=== PATIENT | male | born 1940 | race Caucasian/White ===

== ENCOUNTER 2020-01-30 06:04 | Day surgery (SDC) | payer MEDICARE ==
[~2020-01-30] VITALS: Ht 177.8 cm; Wt 86.0 kg
[~2020-01-30 06:04] MED LIST: ALLO300T PO; DILT120C11 PO; LEVO25TA4 PO; LOSA100T14 PO; MAGN30TA2 PO; METF10007 PO; OMEP-110 PO; POTA8CAP20 PO
[2020-01-30 06:48] VITALS: BP 150/73
[2020-01-30 07:26] LABS: MEAN CORPUSCULAR HEMOGLOBIN 31.8 pg (27.5-34.5); MEAN CORPUSCULAR HGB CONC 33.7 g/dL (33.2-36.2); MEAN PLATELET VOLUME 8.3 fL (7.4-10.4); PLATELET COUNT 238 x10^3/uL (130-400); RED BLOOD COUNT 2.92 x10^6/uL (4.38-5.82); RED CELL DISTRIBUTION WIDTH 20.6 % (9.4-14.8)
[2020-01-30] MEDS ORDERED: SODIUM CHLORIDE 0.9% 1,000 ML IV SCH (07:30)
[2020-01-30 08:07] LABS: MD YES
[2020-01-30 08:09] LABS: BASOS#(MANUAL) 0.07 x10^3/uL (0-0.1); BASOS% (MANUAL) 2 % (0-1)
[2020-01-30 08:10] LABS: <PLATELET ESTIMATE> ADEQUATE; <PLT MORPHOLOGY> NORMAL PLT MORPH; ANISOCYTOSIS 1+; EOS#(MANUAL) 0.32 x10^3/uL (0.0-0.4); EOS% (MANUAL) 9 % (1-7); LYMPH#(MANUAL) 1.12 x10^3/uL (1-3.4); LYMPHS% (MANUAL) 31 % (22-44); MONOS#(MANUAL) 0.25 x10^3/uL (0.3-2.7); MONOS% (MANUAL) 7 % (2-9); SEG#(MANUAL) 1.84 x10^3/uL (1.8-6.8); SEGS% (MANUAL) 51 % (42-75)
[2020-01-30] MEDS ORDERED: MIDAZOLAM 1 MG/ML, 5ML ONE (08:15)
[2020-01-30] MEDS ORDERED: NALOXONE 1 MG/ML, 2ML ONE (08:15)
[2020-01-30] MEDS ORDERED: FENTANYL PF 100 MCG/2ML ONE (08:15)
[2020-01-30] MEDS ORDERED: FLUMAZENIL 0.1 MG/1 ML, 5ML ONE (08:15)
== END 2020-01-30 10:10 | disposition home or self-care (01) ==
LOC: OUT 06:04
PROVIDERS: ATTEND Internal Medicine
DX: D64.9 Anemia, unspecified (principal); I10 Essential (primary) hypertension; E11.9 Type 2 diabetes mellitus without complications; Z79.84 Long term (current) use of oral hypoglycemic drugs; Z79.890 Hormone replacement therapy; Z79.899 Other long term (current) drug therapy; Z87.891 Personal history of nicotine dependence
CPT/HCPCS: 36415; 38222; 77012; 85025; 85060; 85097; 88237; 88264; 88280; 88305; 88311; 88313; 99156; J2250; J3010; J7030; J2310

== ENCOUNTER 2020-05-15 08:15 | Inpatient (IN) | payer MEDICARE ==
[~2020-05-15] VITALS: Ht 172.7 cm; Wt 87.9 kg
[2020-05-15] MEDS ORDERED: SODIUM CHLORIDE FLUSH 10ML SYR IVF ONE (08:30)
--- NOTE | 2020-05-15 09:04 | NUR ---
PT UPRIGHT ON AWAKE & CALM, NAD, NO NEEDS AT THIS TIME, AT BS, CALL LIGHT WITHIN REACH.
[2020-05-15 10:02] LABS: BASOPHILS % (AUTO) 6 % (0-1); EOSINOPHILS % (AUTO) 5 % (1-7); LYMPHOCYTES % (AUTO) 15 % (22-44); MEAN CORPUSCULAR HEMOGLOBIN 30.8 pg (27.5-34.5); MEAN CORPUSCULAR HGB CONC 33.3 g/dL (33.2-36.2); MEAN PLATELET VOLUME 8.8 fL (7.4-10.4); MONOCYTES % (AUTO) 9 % (2-9); NEUTROPHILS % (AUTO) 65 % (42-75); PLATELET COUNT 351 x10^3/uL (130-400); RED BLOOD COUNT 2.59 x10^6/uL (4.38-5.82); RED CELL DISTRIBUTION WIDTH 25.3 % (9.4-14.8)
[2020-05-15 10:03] LABS: ALBUMIN 3.2 g/dL (3.4-5.0); ANION GAP 9 mmol/L (5-15); CALCIUM 8.8 mg/dL (8.5-10.1); CHLORIDE 102 mmol/L (98-107)
--- NOTE | 2020-05-15 10:06 | NUR ---
NAD, NO NEEDS AT THIS TIME, AT BS, CALL LIGHT WITHIN REACH.
[2020-05-15 10:09] LABS: ALANINE AMINOTRANSFERASE 31 U/L (12-78); ALKALINE PHOSPHATASE 55 U/L (45-117); BILIRUBIN,TOTAL 0.6 mg/dL (0.2-1.0); CREATININE 1.14 mg/dL (0.7-1.3); TOTAL PROTEIN 7.2 g/dL (6.4-8.2)
[2020-05-15 10:16] LABS: TROPONIN I 0.124 ng/mL (0.000-0.045)
--- NOTE | 2020-05-15 10:20 | NUR ---
THROUGHPUT RN: NOTIFIED PRIMARY RN OF TROP LEVEL.
[2020-05-15 10:36] LABS: MD SCAN
[2020-05-15] MEDS ORDERED: FUROSEMIDE 40 MG/4 ML ONE (10:54)
[2020-05-15] MEDS ORDERED: ASPIRIN 81 MG TABLET CHEW ONE (10:55)
[2020-05-15] MEDS ORDERED: FUROSEMIDE 40 MG/4 ML IV ONE (11:00)
[2020-05-15] MEDS ORDERED: ASPIRIN 81 MG TABLET CHEW PO ONE (11:00)
--- NOTE | 2020-05-15 11:26 | NUR ---
Pt to be admitted to [facility], room 508-2. Report called to
[2020-05-15] MEDS ORDERED: ONDANSETRON ODT 4 MG PO PRN (11:30)
[2020-05-15] MEDS ORDERED: POLYETHYLENE GLYCOL 17 GM PACKET PO PRN (11:30)
[2020-05-15] MEDS ORDERED: hydrALAzine 20 MG/ML, 1ML IVPush PRN (11:30)
[2020-05-15] MEDS ORDERED: ONDANSETRON 2MG/ML, 2ML IVPush PRN (11:30)
[2020-05-15] MEDS ORDERED: GUAIFENESIN/DM 200-20MG, 10ML UDC PO PRN (11:30)
[2020-05-15] MEDS ORDERED: ACETAMINOPHEN 325 MG TABLET PO PRN (11:30)
[2020-05-15] MEDS ORDERED: MELATONIN 5 MG TABLET PO PRN (11:30)
[2020-05-15 12:20] VITALS: BP 119/75
[2020-05-15 12:54] LABS: TROPONIN I 0.135 ng/mL (0.000-0.045)
[2020-05-15] MEDS: FUROSEMIDE 40 MG/4 ML IV SCH (14:00)
[2020-05-15] MEDS: INSULIN LISPRO 100 UNITS/ML, PEN SQ-INSULIN SCH ×2 (16:32→21:42)
[2020-05-15] MEDS ORDERED: FUROSEMIDE 20 MG/2 ML IV SCH (17:00)
[2020-05-15 17:28] LABS: TROPONIN I 0.126 ng/mL (0.000-0.045)
[2020-05-15 18:34] LABS: MICROSCOPIC AUTO
[2020-05-15 18:59] VITALS: BP 133/72
[2020-05-15 23:59] LABS: TROPONIN I 0.129 ng/mL (0.000-0.045)
[2020-05-16 00:55] VITALS: BP 101/64
[2020-05-16 05:01] LABS: MEAN CORPUSCULAR HEMOGLOBIN 30.4 pg (27.5-34.5); MEAN PLATELET VOLUME 8.5 fL (7.4-10.4); PLATELET COUNT 343 x10^3/uL (130-400); RED BLOOD COUNT 2.68 x10^6/uL (4.38-5.82); RED CELL DISTRIBUTION WIDTH 24.9 % (9.4-14.8)
[2020-05-16 05:16] LABS: CHLORIDE 106 mmol/L (98-107)
[2020-05-16 05:25] LABS: ANION GAP 7 mmol/L (5-15); CALCIUM 9.1 mg/dL (8.5-10.1); CHOLESTEROL, TOTAL 121 mg/dL (140-239); CREATININE 1.14 mg/dL (0.7-1.3); HDL CHOL % 25 % (26-37); HDL CHOLESTEROL (DIRECT) 30 mg/dL (40-60); LDL CHOLESTEROL,CALCULATED 66 mg/dL (54-169); LDL/HDL RATIO 2.2 (0.5-3.0); TRIGLYCERIDES 123 mg/dL (50-200); TROPONIN I 0.132 ng/mL (0.000-0.045); VLDL CHOLESTEROL 25 mg/dL (0-25)
[2020-05-16 05:57] LABS: MD YES
[2020-05-16 06:00] LABS: BAND#(MANUAL) 0.06 x10^3/uL; BANDS%(MANUAL) 1 % (0-7); BASOS#(MANUAL) 0.17 x10^3/uL (0-0.1); BASOS% (MANUAL) 3 % (0-1); EOS#(MANUAL) 0.73 x10^3/uL (0.0-0.4); EOS% (MANUAL) 13 % (1-7); LYMPH#(MANUAL) 1.34 x10^3/uL (1-3.4); LYMPHS% (MANUAL) 24 % (22-44); METAMYELOCYTES# (MANUAL) 0.06 x10^3/uL (0-0); METAMYELOCYTES% (MANUAL) 1 % (0-1); MONOS#(MANUAL) 0.39 x10^3/uL (0.3-2.7); MONOS% (MANUAL) 7 % (2-9); SEG#(MANUAL) 2.86 x10^3/uL (1.8-6.8); SEGS% (MANUAL) 51 % (42-75)
[2020-05-16 06:06] LABS: ANISOCYTOSIS 1+; MICROCYTOSIS 1+; PMNS WITH VACUOLES 1+
[2020-05-16 06:07] LABS: OVALOCYTES 1+; POLYCHROMASIA 1+
[2020-05-16 06:09] LABS: <PLATELET ESTIMATE> ADEQUATE; <PLT MORPHOLOGY> NORMAL PLT MORPH; ACANTHOCYTES 1+; TEAR DROPS 1+
[2020-05-16] MEDS: METOPROLOL SUCCINATE 50 MG TAB.ER.24H PO SCH ×2 (06:17→08:12)
[2020-05-16 06:51] VITALS: BP 117/71
[2020-05-16] MEDS: INSULIN LISPRO 100 UNITS/ML, PEN SQ-INSULIN SCH ×5 (07:00→20:24)
[2020-05-16 08:09] VITALS: BP 137/74
[2020-05-16] MEDS: ALLOPURINOL 300 MG TABLET PO SCH (08:11)
[2020-05-16] MEDS: LEVOTHYROXINE 25 MCG TABLET PO SCH (08:11)
[2020-05-16] MEDS: LOSARTAN 100 MG TAB PO SCH (08:12)
[2020-05-16] MEDS: OMEPRAZOLE 20 MG CAPSULE.DR PO SCH (08:12)
[2020-05-16] MEDS: FUROSEMIDE 40 MG/4 ML IV SCH ×2 (08:13→08:27)
[2020-05-16] MEDS ORDERED: DILTIAZEM 120 MG CAP.ER.12H PO SCH (09:00)
[2020-05-16] MEDS ORDERED: SODIUM CHLORIDE 0.9% 1,000 ML IV SCH (10:00)
[2020-05-16] MEDS ORDERED: MIDAZOLAM 1 MG/ML, 5ML ONE (10:58)
[2020-05-16] MEDS ORDERED: HEPARIN 1,000 UNITS/ML, 10ML ONE (10:59)
[2020-05-16] MEDS ORDERED: LIDOCAINE-MPF 1%, 5ML ONE (10:59)
[2020-05-16] MEDS ORDERED: TICAGRELOR 90 MG TABLET ONE (10:59)
[2020-05-16] MEDS ORDERED: VERAPAMIL 2.5 MG/ML, 2ML ONE (10:59)
[2020-05-16] MEDS ORDERED: BIVALIRUDIN 250 MG ONE ×2 (10:59→12:08)
[2020-05-16] MEDS ORDERED: FENTANYL PF 100 MCG/2ML ONE (10:59)
[2020-05-16] MEDS ORDERED: NITROGLYCERIN 5 MG/ML, 10ML ONE (11:05)
[2020-05-16] MEDS: SODIUM CHLORIDE 0.9% 1,000 ML IV SCH ×2 (12:30→22:32)
[2020-05-16] MEDS ORDERED: BIVALIRUDIN 250 MG in SODIUM CHLORIDE 0.9% 50 ML IV SCH (13:00)
[2020-05-16 13:43] VITALS: BP 127/78
[2020-05-16 13:53] LABS: TROPONIN I 0.145 ng/mL (0.000-0.045)
[2020-05-16] MEDS ORDERED: LORazepam 2 MG/ML, 1ML IVPush ONE (14:00)
[2020-05-16 14:36] VITALS: BP 119/74
[2020-05-16] MEDS: LORazepam 0.5MG TABLET PO PRN (14:49)
[2020-05-16 17:18] LABS: TROPONIN I 0.204 ng/mL (0.000-0.045)
[2020-05-16 18:38] VITALS: BP 146/86
[2020-05-16] MEDS ORDERED: CLOPIDOGREL 300 MG TABLET PO ONE (21:00)
[2020-05-16] MEDS ORDERED: TICAGRELOR 90 MG TABLET PO SCH (21:00)
[2020-05-16 23:51] LABS: TROPONIN I 0.522 ng/mL (0.000-0.045)
[2020-05-17 00:12] VITALS: BP 152/81
[2020-05-17] MEDS: LORazepam 0.5MG TABLET PO PRN (02:39)
[2020-05-17 05:19] LABS: MEAN CORPUSCULAR HEMOGLOBIN 30.9 pg (27.5-34.5); MEAN CORPUSCULAR HGB CONC 33.7 g/dL (33.2-36.2); MEAN PLATELET VOLUME 8.7 fL (7.4-10.4); PLATELET COUNT 350 x10^3/uL (130-400); RED BLOOD COUNT 2.52 x10^6/uL (4.38-5.82); RED CELL DISTRIBUTION WIDTH 25.1 % (9.4-14.8)
[2020-05-17 05:27] LABS: ANION GAP 8 mmol/L (5-15); CALCIUM 8.6 mg/dL (8.5-10.1); CHLORIDE 107 mmol/L (98-107)
[2020-05-17 05:28] LABS: CREATININE 1.13 mg/dL (0.7-1.3)
[2020-05-17 05:33] VITALS: BP 138/83
[2020-05-17] MEDS: METOPROLOL SUCCINATE 50 MG TAB.ER.24H PO SCH (05:35)
[2020-05-17 06:36] LABS: MD YES
[2020-05-17 06:46] LABS: <PLATELET ESTIMATE> ADEQUATE; <PLT MORPHOLOGY> NORMAL PLT MORPH; ACANTHOCYTES 1+; ANISOCYTOSIS 1+; BAND#(MANUAL) 0.28 x10^3/uL; BANDS%(MANUAL) 5 % (0-7); LYMPH#(MANUAL) 0.84 x10^3/uL (1-3.4); LYMPHS% (MANUAL) 15 % (22-44); MICROCYTOSIS 1+; MONOS#(MANUAL) 0.45 x10^3/uL (0.3-2.7); MONOS% (MANUAL) 8 % (2-9); MYELOCYTES# (MANUAL) 0.11 x10^3/uL (0-0); MYELOCYTES% (MANUAL) 2 % (0-0); OVALOCYTES 1+; POLYCHROMASIA 1+; SEG#(MANUAL) 3.92 x10^3/uL (1.8-6.8); SEGS% (MANUAL) 70 % (42-75); SPHEROCYTES 1+; TEAR DROPS 1+
[2020-05-17 06:49] LABS: SCHISTOCYTES 1+
[2020-05-17] MEDS: SODIUM CHLORIDE 0.9% 1,000 ML IV SCH ×3 (08:00→22:12)
[2020-05-17 08:15] VITALS: BP 124/79
[2020-05-17] MEDS: LEVOTHYROXINE 25 MCG TABLET PO SCH (08:19)
[2020-05-17] MEDS: CLOPIDOGREL 75 MG TABLET PO SCH (08:19)
[2020-05-17] MEDS: OMEPRAZOLE 20 MG CAPSULE.DR PO SCH (08:19)
[2020-05-17] MEDS: ALLOPURINOL 300 MG TABLET PO SCH (08:20)
[2020-05-17] MEDS: LOSARTAN 100 MG TAB PO SCH (08:20)
[2020-05-17] MEDS: FUROSEMIDE 40 MG/4 ML IV SCH (08:21)
[2020-05-17] MEDS: INSULIN LISPRO 100 UNITS/ML, PEN SQ-INSULIN SCH ×4 (08:23→20:32)
[2020-05-17] MEDS: SPIRONOLACTONE 25 MG TABLET PO SCH (10:45)
[2020-05-17 12:47] VITALS: BP 114/67
[2020-05-17 20:00] VITALS: BP 117/69
[2020-05-18] VITALS (9 sets, daily range): BP systolic 105–132; BP diastolic 64–77
[2020-05-18 04:59] LABS: MEAN CORPUSCULAR HEMOGLOBIN 30.2 pg (27.5-34.5); MEAN CORPUSCULAR HGB CONC 32.7 g/dL (33.2-36.2); MEAN PLATELET VOLUME 8.6 fL (7.4-10.4); PLATELET COUNT 363 x10^3/uL (130-400); RED BLOOD COUNT 2.45 x10^6/uL (4.38-5.82); RED CELL DISTRIBUTION WIDTH 25.4 % (9.4-14.8)
[2020-05-18 05:12] LABS: ANION GAP 9 mmol/L (5-15); CALCIUM 8.5 mg/dL (8.5-10.1); CHLORIDE 109 mmol/L (98-107)
[2020-05-18 05:13] LABS: CREATININE 1.13 mg/dL (0.7-1.3)
[2020-05-18] MEDS: METOPROLOL SUCCINATE 50 MG TAB.ER.24H PO SCH (05:34)
[2020-05-18 05:48] LABS: MD YES
[2020-05-18 05:51] LABS: ANISOCYTOSIS 1+; BAND#(MANUAL) 0.07 x10^3/uL; BANDS%(MANUAL) 1 % (0-7); BASOS#(MANUAL) 0.22 x10^3/uL (0-0.1); BASOS% (MANUAL) 3 % (0-1); EOS#(MANUAL) 0.37 x10^3/uL (0.0-0.4); EOS% (MANUAL) 5 % (1-7); LYMPHS% (MANUAL) 15 % (22-44); MICROCYTOSIS 1+; MONOS#(MANUAL) 0.44 x10^3/uL (0.3-2.7); MONOS% (MANUAL) 6 % (2-9); OVALOCYTES 1+; POLYCHROMASIA 1+; SEG#(MANUAL) 5.11 x10^3/uL (1.8-6.8); SEGS% (MANUAL) 70 % (42-75)
[2020-05-18 05:53] LABS: <PLATELET ESTIMATE> ADEQUATE; <PLT MORPHOLOGY> NORMAL PLT MORPH; ACANTHOCYTES 1+; SCHISTOCYTES 1+
[2020-05-18 05:54] LABS: SPHEROCYTES 1+
[2020-05-18 05:56] LABS: TEAR DROPS 1+
[2020-05-18] MEDS: INSULIN LISPRO 100 UNITS/ML, PEN SQ-INSULIN SCH ×2 (07:00→11:00)
[2020-05-18] MEDS ORDERED: POTASSIUM CHLORIDE 20 MEQ TAB.ER.PRT PO ONE (08:00)
[2020-05-18] MEDS: OMEPRAZOLE 20 MG CAPSULE.DR PO SCH (08:18)
[2020-05-18] MEDS: ALLOPURINOL 300 MG TABLET PO SCH (08:18)
[2020-05-18] MEDS: LOSARTAN 100 MG TAB PO SCH (08:18)
[2020-05-18] MEDS: LEVOTHYROXINE 25 MCG TABLET PO SCH (08:18)
[2020-05-18] MEDS: SPIRONOLACTONE 25 MG TABLET PO SCH (08:18)
[2020-05-18] MEDS: CLOPIDOGREL 75 MG TABLET PO SCH (08:19)
[2020-05-18] MEDS ORDERED: FUROSEMIDE 40 MG TABLET PO SCH (09:00)
[2020-05-18] MEDS ORDERED: METO-93 PO (11:07)
[2020-05-18] MEDS ORDERED: CLOP75TA PO (11:07)
[2020-05-18] MEDS ORDERED: SPIR25TA PO (11:07)
[2020-05-18] MEDS ORDERED: FURO40TA6 PO (11:07)
== END 2020-05-18 13:18 | disposition home or self-care (01) | DRG 246 ==
LOC: ED 09:47 → EDIP 10:55 → SUATTDRO 10:59 → 5SO 11:42 → DCLOUNGE 05-18 13:11
PROVIDERS: ADMIT Hospitalist; ATTEND Family Medicine
PROC: 027236Z Dilation of Coronary Artery, Three Arteries with Three Drug-eluting Intraluminal Devices, Percutaneous Approach (ICD-10-PCS; 2020-05-16)
PROC: 4A023N7 Measurement of Cardiac Sampling and Pressure, Left Heart, Percutaneous Approach (ICD-10-PCS; 2020-05-16)
PROC: B211YZZ Fluoroscopy of Multiple Coronary Arteries using Other Contrast (ICD-10-PCS; 2020-05-16)
PROC: 30233N1 Transfusion of Nonautologous Red Blood Cells into Peripheral Vein, Percutaneous Approach (ICD-10-PCS; principal; 2020-05-18)
DX: I11.0 Hypertensive heart disease with heart failure (principal); J96.01 Acute respiratory failure with hypoxia; I50.41 Acute combined systolic (congestive) and diastolic (congestive) heart failure; D46.9 Myelodysplastic syndrome, unspecified; E03.9 Hypothyroidism, unspecified; E11.9 Type 2 diabetes mellitus without complications; E78.5 Hyperlipidemia, unspecified; I25.10 Atherosclerotic heart disease of native coronary artery without angina pectoris; I25.5 Ischemic cardiomyopathy; Z87.891 Personal history of nicotine dependence; Z95.5 Presence of coronary angioplasty implant and graft; Z90.49 Acquired absence of other specified parts of digestive tract
CPT/HCPCS: 36415; 71045; 78452; 80048; 80053; 80061; 81001; 82947; 82962; 83036; 83605; 83615; 83735; 83880; 84100; 84145; 84443; 84484; 84550; 85014; 85018; 85025; 86850; 86900; 86923; 87040; 93005; 93306; 93458; 96374; 99156; 99157; 99291; C1769; C1894; C9600; G0378; J0583; J1644; J1940; J2250; J3010; A9502; C1725; C1874; C1887; J1815; J2060; J7030; P9016; Q9967

== ENCOUNTER 2020-05-20 14:02 | Emergency (ER) | payer MEDICARE ==
[~2020-05-20 14:02] MED LIST changes: +CLOP75TA PO; +FURO40TA6 PO; +METO-93 PO; +SPIR25TA PO
--- NOTE | 2020-05-20 14:27 | NUR ---
LATE ENTRY: THIS IS A 79 YO M [facility] PRIVATE VEHICLE BY [employer] FOR SOB. PER SPOUSE PT HAD 4 STENTS PLACED ON TUESDAY R/ SOB. 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 PT STRAIGHT BACK TO T3. UPON FIRST CONTACT W/ PT, PT WAS PALE AND APPEARED TO HAVE AGONAL BREATHS. PT TRANSFERED TO [facility], NO PULSE FELT. CPR INITIATED. SARA FLORIAN CALLED. SEE CODE MIKE. Addendum: 05/20/20 at 1512 by ROGERIO LATE ENTRY: THIS IS A 79 YO M [facility] PRIVATE VEHICLE BY SPOUSE FOR SOB. PER SPOUSE PT HAD 4 STENTS PLACED ON TUESDAY R/ SOB. 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 PT STRAIGHT BACK TO T3. UPON FIRST CONTACT W/ PT, PT WAS PALE AND APPEARED TO HAVE AGONAL BREATHS. PT TRANSFERED TO [facility], NO PULSE FELT. CPR INITIATED. SARA FLORIAN CALLED. SEE CODE PALLAVIK.
[2020-05-20] MEDS ORDERED: ATROPINE SYRINGE 0.1 MG/ML, 10ML ONE (14:41)
[2020-05-20] MEDS ORDERED: EPINEPHRINE SYRINGE 0.1 MG/ML, 10ML ONE (14:41)
--- NOTE | 2020-05-20 15:00 | NUR ---
PER FORTINO MCRAE FROM CORONERS OFFICE, PT IS NOT A [employer]ON[employer]'S CASE.
--- NOTE | 2020-05-20 16:04 | NUR ---
BODY RELEASED TO [facility] PER FAMILY WISHES AT THIS TIME.
== END 2020-05-20 16:55 | disposition expired ==
LOC: ED 14:15
DX: R57.0 Cardiogenic shock (principal); I46.8 Cardiac arrest due to other underlying condition; C41.9 Malignant neoplasm of bone and articular cartilage, unspecified; R06.02 Shortness of breath; R06.00 Dyspnea, unspecified; Z90.89 Acquired absence of other organs
CPT/HCPCS: 92950; 99285; J0461